=== PATIENT | male | born 1945 | race Caucasian/White ===

== ENCOUNTER 2016-09-02 21:00 | Inpatient (IN) | payer BC ==
[2016-08-31 21:34] LABS: A/G RATIO 1.2 (0.7-1.9); ALKALINE PHOSPHATASE 66 U/L (45-117); CALCIUM, SERUM 8.8 MG/DL (8.5-10.4); CHLORIDE, SERUM 100 MMOL/L (96-112); CO2 (CARBON DIOXIDE) 28 MMOL/L (24-34); GFR AFRICAN AMERICAN 12 ML/MIN (>=60); GFR NON AFRICAN AMERICAN 10 ML/MIN (>=60); GLOBULIN 3.3 G/DL (2.5-4.1); GLUCOSE, SERUM 101 MG/DL (60-99); POTASSIUM, SERUM 4.4 MMOL/L (3.5-5.3); SGOT(AST) 26 U/L (5-40); SGPT(ALT) 29 U/L (5-65); SODIUM, SERUM 139 MMOL/L (135-148); TOTAL BILIRUBIN 0.7 MG/DL (0-1.2); TOTAL PROTEIN 7.3 G/DL (6.0-8.5)
[2016-08-31 21:39] LABS: BUN (BLOOD UREA NITROGEN) 98 MG/DL (6-23); CREATININE 5.29 MG/DL (0.70-1.30)
--- NOTE | ~2016-09-02 | CN ---
Consultation Report [facility] [address] [place]. [address] NAME: FRANCOIS MOORE : 43 STATUS : ADM Senthil PAT#: [id number] AGE: 71 ADM/REG DATE : 09/02/16 MR#: [id number] REPORT SERV DATE: 09/04/16 DICTATED BY: ENE COLLINS DATE: 09/03/16 REPORT STATUS : Draft TRANSCRIBED BY: MODL DATE: 09/03/16 DATE OF CONSULTATION: REASON FOR CONSULTATION: Acute kidney injury. HISTORY OF PRESENT ILLNESS: This is a very pleasant 71-year-old male patient, referred to [facility] Emergency Department at the request of his primary care physician, Dr. Mccarthy. Baseline creatinine appears to be around 1.1 to 1.3. Mr. Moore has recently experienced an inpatient hospitalization with atrial fibrillation with pacemaker and a subsequent GI bleed after being initiated on Eliquis. He reports that he began to feel "zombie-like" over the last week or so and reported to Dr. Mccarthy's office and was noted to have a low blood pressure. The patient states that he was subsequently removed from his blood pressure medication and referred to the emergency department for evaluation as his creatinine was elevated. Creatinine on an initial evaluation here was 5.29 on 08/31, now at 3.23 on 09/03, trending now to 2.85. The patient reports no incidence of nausea, vomiting, or diarrhea. He does not chronically use nonsteroidal medications and has not been exposed to contrast medium of late. He does chronically have difficulty with his prostate and is followed by Dr. Galindo and reports that he has received a previous TURP, but has not had a diagnosis of prostate cancer and declines any overt difficulty with urination. PAST MEDICAL HISTORY: Includes systolic congestive heart failure with a known ejection fraction last measured at 25%, recent hospitalization with pacer and subsequent GI bleed with initiation of Eliquis, atrial fibrillation, headaches, previous instances of acute renal insufficiency, chronic right bundle-branch block, history of GI bleed as above, nonischemic cardiomyopathy, recurrent ventricular tachycardia, depression, hyperlipidemia, and hypothyroidism. SOCIAL HISTORY: Previous [id number] history of smoking. This is a remote occurrence and has not smoked for greater than 20 years by report. No EtOH. No illicit drugs. 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 FAMILY HISTORY: Noncontributory and not reviewed during this consultation and dictation. ALLERGIES: HE LISTS NO KNOWN ALLERGIES. ACTIVE MEDICATIONS: Include Xanax 0.25 mg b.i.d. p.r.n., Cordarone 200 mg p.o. b.i.d., Lipitor 20 mg p.o. at bedtime, carvedilol 6.25 mg p.o. b.i.d., Flonase one spray nasal daily, Prinivil 5 mg p.o. daily, Zofran 4 mg p.o. t.i.d. p.r.n., Protonix 40 mg p.o. b.i.d., Paxil 10 mg p.o. at bedtime, Aldactone 25 mg p.o. daily, and Flomax 0.4 mg p.o. daily. PHYSICAL EXAMINATION: VITAL SIGNS: Blood pressure 119/68, temperature 97.9, respiratory rate of 18, heart rate of 80 beats per minute. GENERAL: He is an awake, alert, and oriented male patient, lying in bed during evaluation with no complaints. Consultation Report [address] [address] NAME: FRANCOIS MOORE : 43 STATUS : ADM Senthil PAT#: [id number] AGE: 71 ADM/REG DATE : 09/02/16 MR#: [id number] REPORT SERV DATE: 09/04/16 DICTATED BY: ENE COLLINS DATE: 09/03/16 REPORT STATUS : Draft TRANSCRIBED BY: KARL DATE: 09/03/16 HEENT: Normocephalic, atraumatic. Normal ocular movements. No scleral icterus or conjunctival pallor is appreciated. NECK: Supple without thyromegaly. No JVD or mass. CHEST: Shows positive S1 and S2. No rubs or gallops. LUNGS: Diminished throughout. Normal expansion and effort. No noticeable rhonchi or wheezes. GI: Shows positive bowel sounds in all four quadrants. No appreciable mass or tenderness. : Deferred. EXTREMITIES: Show positive pulses. No clubbing, cyanosis, or edema. NEUROLOGIC: Appears to be grossly intact. Nonfocal. Appropriate mood and affect. SKIN: Warm, dry, and intact to the visualized surfaces. No rash, lesions, or ecchymosis. LABORATORY DATA AND IMAGING: Pertinent laboratories and imaging to this evaluation are as follows: Renal ultrasound taken this morning shows nonobstructive kidneys with an enlarged prostate with a noted bladder does not identify any indication of retention. Most recent electrolyte profile: Sodium 141, potassium 4.2, chloride 100, CO2 of 31, BUN 64, creatinine 2.85. Reflected GFR at 21 mL/minute. Calcium 9.3, magnesium 2.1, phosphorus 3.0. TSH 2.53. CBC shows white blood cell count of 8.2, RBC 4.28, hemoglobin is 11.7, hematocrit 36.4, and platelets of 231. Urinalysis: Negative for protein, glucose, or ketones. Minimal white blood cells or RBCs. IMPRESSION AND PLAN: This is a pleasant 71-year-old male patient with medical history as listed above. Recent gastrointestinal bleed, with Eliquis, with known cardiac history as above with ejection fraction at 25% and placement of a pacemaker, now presenting to [facility] at the request of his primary care physician, with an acute kidney injury with concomitant use of TASHA inhibitor as well as Aldactone. Creatinine measured on 08/31, 5.29. Creatinine trending over the last 24 hours 3.23, and 2.85. Baseline creatinine appears to be around 1.1 to 1.3. Likely, this injury is related to possible volume contraction plus or minus acute tubular necrosis with noted hypotension and reported incidences of the patient stating he felt "zombie-like" with blood pressure readings low by his recall in Dr. Mccarthy's office. May also consider recent GI bleed with a down trend and his hemoglobin may be worth guaiacing his stools for further evaluation. This patient reports no dark tarry stools, and he had a recent scope and procedure by his recall related to his gastrointestinal bleed that was diagnosed. Hold his TASHA; hold his Aldactone as above; check his postvoid residual with known difficulty with enlarged prostate followed by Dr. Galindo; previous TURP by the patient recall. Renal ultrasound is negative. Place him on strict I's and O's and assure his urinary output. Hopeful of renal recovery to previous baseline as he is already indicated a quick return towards that baseline this morning. There is no acute clinical indication for dialysis, and we will watch this patient closely. Modify treatment plan based on the clinical presentation of the patient, laboratory results, further consultation with renal attending. We appreciate your consultation and glad to follow with you. Consultation Report [place] [address] [place] [address] NAME: FRANCOIS MOORE : 43 STATUS : ADM Senthil PAT#: [id number] AGE: 71 ADM/REG DATE : 09/02/16 MR#: [id number] REPORT SERV DATE: 09/04/16 DICTATED BY: ENE COLLINS DATE: 09/03/16 REPORT STATUS : Draft TRANSCRIBED BY: MODL DATE: 09/03/16 DICTATED BY: Maciel Lopes NP JR/KARL Ene Collins M.D. / [id number] CC: MD Donald Nielson M.D.
--- NOTE | ~2016-09-02 | HP ---
History And Physical [place] [place] [id number] [place]. [address] NAME: FRANCOIS MOORE : 43 STATUS : ADM Senthil PAT#: [id number] AGE: 71 ADM/REG DATE : 09/02/16 MR#: [id number] REPORT SERV DATE: 09/03/16 DICTATED BY: RAKESH CARLISLE DATE: 09/03/16 REPORT STATUS : Draft TRANSCRIBED BY: MODL DATE: 09/03/16 DATE OF ADMISSION: 09/02/2016 CHIEF COMPLAINT: Acute renal failure. HISTORY OF PRESENT ILLNESS: This is a 71-year-old male, referred here by his primary care physician, Dr. Mccarthy, for acute renal failure. History is obtained from the patient, and reviewing data available on the Dialective system. According to available data, Mr. moore was in his usual state of health, has a history of systolic congestive heart failure with an ejection fraction of 25%, atrial fibrillation with a pacemaker and a recent GI bleed while he was started on Eliquis. Since the GI bleed his medications especially his hypertension medications were being adjusted and he was being diuresed as well. His BUN and creatinine on 07/17/2016 was 27 and 1.42. On 08/31/2016 it jumped up to 5.29 with a BUN of 98. Today it was a BUN of 67 and creatinine was 3.23. Dr. Mccarthy had seen the 08/31/2016 results and asked the patient to go into the emergency room to be evaluated. During this time, the patient was quite asymptomatic, although he complains of dysuria. He also complained of increased frequency of urination as well. He denied any other symptoms associated with this. In the emergency room, initial workup revealed renal function as described above. Hospitalist Service is asked to admit him for further evaluation and treatment. At the time of my evaluation, he denied any chest pain or palpitations. He had no orthopnea. He had no cough, hemoptysis, night sweats, or weight loss. He denied any recent falls or loss of consciousness. No history of fevers, chills. He did have dysuria. No history of hematuria. No nausea, vomiting, diarrhea, hematemesis, or hematochezia. No other history of recent travel or exposures other than those mentioned above. PAST MEDICAL HISTORY: Significant for history of essential hypertension, systolic congestive heart failure with an ejection fraction of 25%, atrial fibrillation with pacemaker placement. He has chronic right bundle-branch block. History of GI bleed. Nonischemic cardiomyopathy, recurrent ventricular tachycardia, depression, hyperlipidemia, and hypothyroidism. SOCIAL HISTORY: He has a 20-pack year history of smoking and has not smoked in a long time. He denies alcohol use or recreational drug use. He is a construction management assistant. FAMILY HISTORY: Noncontributory. MEDICATIONS: His medications at home were reviewed by me in the chart today and reordered by me. REVIEW OF SYSTEMS: History And Physical [address] [address] NAME: FRANCOIS MOORE : 43 STATUS : ADM Senthil PAT#: [id number] AGE: 71 ADM/REG DATE : 09/02/16 MR#: [id number] REPORT SERV DATE: 09/03/16 DICTATED BY: RAKESH CARLISLE DATE: 09/03/16 REPORT STATUS : Draft TRANSCRIBED BY: KARL DATE: 09/03/16 As in history of present illness. All other systems were reviewed in detail and are quite unremarkable. PHYSICAL EXAMINATION: GENERAL: This is a pleasant 71-year-old, not in any acute distress. HEENT: His head is atraumatic and normocephalic. He is alert, awake, and oriented to time, place, and person. Pupils are equal, reacting to light and accommodating. External ocular muscles are intact. Membranes are moist and pink. Sclerae are nonicteric. NECK: Supple with no jugular venous distention, lymphadenopathy, or thyromegaly. LUNGS: Clear to auscultation with no wheezes, rubs, or crackles. HEART: Heart sounds were regular with no murmurs, rubs, or gallops. ABDOMEN: Soft and nontender. Bowel sounds are present. EXTREMITIES: No cyanosis, clubbing, or edema. NEUROLOGIC: Grossly intact. No focal sensory or motor deficits. Higher functions appeared intact. Gait was not examined. VITAL SIGNS: Today showed a temperature of 96.6, pulse 98, respirations 18 a minute, blood pressure was 127/81, and oxygen saturations were 98%, breathing 2 L of oxygen via nasal cannula. LABORATORY DATA: Reviewed on the Dialective system showed a sodium of 141, potassium of 4.4, chloride of 102, CO2 of 28, BUN was 67 with a creatinine of 3.23, and GFR was 21. His blood glucose was 124. His alkaline phosphatase, ALT, AST were within normal limits. CBC showed a white blood cell count of 11,000, hemoglobin was 12.7, hematocrit 38.9, and platelet count was 266,000. Urinalysis was grossly unremarkable today. No imaging was performed in the ER today. IMPRESSION: 1. Acute renal failure. 2. Essential hypertension. 3. Systolic congestive heart failure with an ejection fraction of 25%. 4. Atrial fibrillation with pacemaker placement. 5. Right bundle-branch block. 6. Recent gastrointestinal bleeding. 7. Chronic ischemic cardiomyopathy. 8. Hypothyroidism. 9. Depression. 10.Recurrent ventricular tachycardia. 11.Hyperlipidemia. PLAN: We will admit Mr. Moore to the Hospitalist Service in cardiac telemetry for a 24-hour observation period. We will go ahead and get Nephrology Service to evaluate him in the morning in consultation and offer recommendations. The patient was in congestive heart failure and was treated with diuretics. He was also on Eliquis and had a GI bleed as well. History And Physical [address] [address] NAME: FRANCOIS MOORE : 43 STATUS : ADM Senthil PAT#: [id number] AGE: 71 ADM/REG DATE : 09/02/16 MR#: [id number] REPORT SERV DATE: 09/03/16 DICTATED BY: RAKESH CARLISLE DATE: 09/03/16 REPORT STATUS : Draft TRANSCRIBED BY: KARL DATE: 09/03/16 Anyway, we will go ahead and hold any diuretics, NSAIDs, and other nephrotoxins medications. Start him on IV fluids very cautiously for volume replacement due to his congestive heart failure. His anticoagulation is on hold since his GI bleed. We will monitor chemistry, electrolytes in the morning and replete as needed, and also check his TSH. He will be on SCDs for DVT prophylaxis while he is here. I have discussed the above plans with the patient. His questions were answered and he is agreeable to the above recommendations. Hospitalist Service will be following him during his stay here. /KARL Rakesh Carlisle M.D. / [id number] CC: MD Donald Nielson M.D.
--- NOTE | ~2016-09-02 | DS ---
Discharge Summary [facility] [address] [place]. [address] NAME: FRANCOIS MOORE : 43 STATUS : DIS IN PAT#: [id number] AGE: 71 ADM/REG DATE : 09/02/16 MR#: [id number] REPORT SERV DATE: 09/06/16 DICTATED BY: JR. WHITESIDE WILLIAM JOHN DATE: 09/05/16 REPORT STATUS : Draft TRANSCRIBED BY: MODKenneth DATE: 09/05/16 ADMISSION DATE: 09/02/2016 DISCHARGE DATE: 09/05/2016 DISCHARGE DIAGNOSES: Include: 1. Acute kidney injury with recent gastrointestinal bleed and chronic systolic heart failure. 2. Overdiuresis and acute tubular necrosis. 3. Essential hypertension. 4. Chronic ischemic cardiomyopathy with chronic systolic heart failure, ejection fraction 25%. 5. Recent gastrointestinal bleed. 6. Atrial fibrillation, permanent pacemaker. 7. Right bundle-branch block, which is chronic. 8. Hypothyroidism. 9. Depression. 10.History of recurrent ventricular tachycardia. OPERATIONS, PROCEDURES, AND TREATMENTS INCLUDE: Renal ultrasound done 09/03/2016, which showed nonobstructive kidneys with an enlarged prostate. No other remarkable findings. DISCHARGE MEDICATIONS: Include: 1. Xanax 0.25 mg orally at bedtime. 2. Lipitor 20 mg orally daily. 3. Amiodarone 200 mg orally twice a day. 4. Mexiletine 150 mg orally three times a day. 5. Coreg 3.125 mg orally twice a day. 6. Proscar 5 mg orally daily. 7. Protonix 40 mg orally twice a day. 8. Paxil 10 mg orally daily. 9. Flomax 0.4 mg daily. 10.Lasix 40 mg orally daily. HOSPITAL COURSE: The patient is a 71-year-old white male, referred from Dr. Mccarthy's office for renal failure on 09/02/2016. The patient had a recent history of GI bleeding in June 2016. During that stay, he had acute kidney injury after being started on Eliquis and developing GI bleed. He was seen in Dr. Mccarthy's office, had laboratory drawn on 08/31/2016, his BUN was 98, creatinine was 5.3. His diuretics were withheld. The patient had a redraw, which was again elevated and was inpatient, was forwarded to the emergency room for further care. Initial exam was remarkable for temperature 96.6, heart rate 98, respiratory rate 18, blood pressure 127/81, saturation was 98% on 2 L nasal cannula. Significant laboratory included a sodium 141, potassium 4.4, chloride 102, bicarb 28, BUN 67, creatinine 3.2, hemoglobin was 12.7. Discharge Summary [place] [facility] [address] [place]. [address] NAME: FRANCOIS MOORE : 43 STATUS : DIS IN PAT#: [id number] AGE: 71 ADM/REG DATE : 09/02/16 MR#: [id number] REPORT SERV DATE: 09/06/16 DICTATED BY: JR. WHITESIDE WILLIAM JOHN DATE: 09/05/16 REPORT STATUS : Draft TRANSCRIBED BY: KARL DATE: 09/05/16 The patient was admitted to observation in the clinical decision unit for further care. His diuretics were withheld, and he was gently IV fluid hydrated. His renal function gradually improved. He was seen by Dr. Escalante of Nephrology, who stopped his Aldactone and Prinivil. Since that time, the patient's renal function has continued to improve. On discharge, his BUN was 37 and creatinine is 1.8. We will resume his Lasix 40 mg orally daily, however, hold his Prinivil as well as Aldactone until seen by Dr. Mccarthy. The patient will follow up with Dr. Mccarthy in one week with a BMP. Consideration at that time should be given to resuming TASHA inhibitor and Aldactone. The remainder of the patient's health problems were stable throughout the hospitalization and were not addressed. DISCHARGE DIET: Will be as prior. ACTIVITY: As tolerated. FOLLOWUP: With Dr. Mccarthy in one week with a BMP. For discharge exam and laboratory, please see daily progress note. This discharge took 32 minutes for patient encounter, coordination of care, and documentation. WChrisF/KARL Pipe Whiteside Jr, MD / [id number] CC: Pipe Whiteside Jr, MD Michael Dant, M.D.
[~2016-09-02 21:00] MED LIST: ASAB PO; CORDARONE PO; COREG12 PO; ELIQUIS 5 MG TAB5 MG PO; FLOMAX4 PO; FLONASE NAS; L40 PO; LIPITOR20 PO; MONODOX100 MG PO; NEO-OINT15 TOP; PAX10 PO; PRIN5 PO; PROTONIX PO; SPIRO25 PO; X25 PO; ZOFRAN4 PO
[2016-09-03 01:44] LABS: BASOPHILS 0.1 %; BASOPHILS ABSOLUTE 0.01 10/3/uL (0.0-0.16); EOSINOPHILS 0.5 %; EOSINOPHILS ABSOLUTE 0.06 10/3/uL (0.0-0.53); IMMATURE GRANULOCYTES 0.2 %; IMMATURE GRANULOCYTES ABSOLUTE 0.02 10/3/uL (0.0-0.11); LYMPHOCYTES 13.5 %; LYMPHOCYTES ABSOLUTE 1.48 10/3/uL (0.67-4.30); MEAN CORPUSCULAR HEMOGLOB 27.9 pg (26.0-34.0); MEAN CORPUSCULAR VOLUME 85.5 fL (80-100); MEAN PLATELET VOLUME 10.2 fL (9.2-13.0); MONOCYTES ABSOLUTE 0.77 10/3/uL (0.21-1.20); NEUTROPHILS 78.7 %; NEUTROPHILS ABSOLUTE 8.62 10/3/uL (2.02-8.40); RBC DISTRIBUTION WIDTH 17.4 % (12.0-16.0)
[2016-09-03 01:59] LABS: ER CBC TAT 0 Hrs 19 Mins; HEMATOCRIT 38.9 % (40.0-51.0); HEMOGLOBIN 12.7 g/dL (13.6-17.8); MEAN CORPUS HGB CONC 32.6 g/dL (32.0-36.0); PLATELET COUNT 266 10/3/uL (150-400); RED CELL COUNT 4.55 10/6/uL (4.7-6.1)
[2016-09-03 02:00] LABS: MANUAL DIFF NO %
[2016-09-03 02:03] LABS: ASCORBIC ACID (UR NOT ORDER) 20 (NEG); BILIRUBIN, URINE NEGATIVE (NEG); ER URINALYSIS TAT 0 Hrs 05 Mins; KETONE, URINE NEGATIVE (NEG); LEUKOCYTE ESTERASE(NOT OR NEG (NEG); NITRITE (URINE) NEG (NEG); WBC (NOT ORDERED) (RFLEX) < 1 (0-5)
[2016-09-03 02:06] LABS: A/G RATIO 0.9 (0.7-1.9); ALBUMIN 4.1 G/DL (3.5-5.0); ALKALINE PHOSPHATASE 72 U/L (45-117); CALCIUM, SERUM 9.6 MG/DL (8.5-10.4); CHLORIDE, SERUM 102 MMOL/L (96-112); CO2 (CARBON DIOXIDE) 28 MMOL/L (24-34); POTASSIUM, SERUM 4.4 MMOL/L (3.5-5.3); SGOT(AST) 25 U/L (5-40); SGPT(ALT) 29 U/L (5-65); SODIUM, SERUM 141 MMOL/L (135-148); TOTAL BILIRUBIN 0.7 MG/DL (0-1.2); TOTAL PROTEIN 8.5 G/DL (6.0-8.5)
[2016-09-03 02:07] LABS: BUN (BLOOD UREA NITROGEN) 67 MG/DL (6-23); CREATININE 3.23 MG/DL (0.70-1.30); GFR AFRICAN AMERICAN 21 ML/MIN (>=60); GFR NON AFRICAN AMERICAN 18 ML/MIN (>=60); GLOBULIN 4.4 G/DL (2.5-4.1); GLUCOSE, SERUM 124 MG/DL (60-99)
[2016-09-03 07:09] LABS: BASOPHILS 0.1 %; BASOPHILS ABSOLUTE 0.01 10/3/uL (0.0-0.16); EOSINOPHILS 0.9 %; EOSINOPHILS ABSOLUTE 0.07 10/3/uL (0.0-0.53); HEMATOCRIT 36.4 % (40.0-51.0); HEMOGLOBIN 11.7 g/dL (13.6-17.8); IMMATURE GRANULOCYTES 0.1 %; IMMATURE GRANULOCYTES ABSOLUTE 0.01 10/3/uL (0.0-0.11); LYMPHOCYTES 11.5 %; LYMPHOCYTES ABSOLUTE 0.95 10/3/uL (0.67-4.30); MEAN CORPUS HGB CONC 32.1 g/dL (32.0-36.0); MEAN CORPUSCULAR HEMOGLOB 27.3 pg (26.0-34.0); MEAN PLATELET VOLUME 9.9 fL (9.2-13.0); MONOCYTES 7.9 %; MONOCYTES ABSOLUTE 0.65 10/3/uL (0.21-1.20); NEUTROPHILS 79.5 %; NEUTROPHILS ABSOLUTE 6.54 10/3/uL (2.02-8.40); PLATELET COUNT 231 10/3/uL (150-400); RBC DISTRIBUTION WIDTH 17.7 % (12.0-16.0); RED CELL COUNT 4.28 10/6/uL (4.7-6.1); WHITE BLOOD CELLS 8.2 10/3/uL (4.5-10.5)
[2016-09-03 07:13] LABS: MANUAL DIFF NO %
[2016-09-03 07:36] LABS: BUN (BLOOD UREA NITROGEN) 64 MG/DL (6-23); CALCIUM, SERUM 9.3 MG/DL (8.5-10.4); CHLORIDE, SERUM 100 MMOL/L (96-112); CO2 (CARBON DIOXIDE) 31 MMOL/L (24-34); CREATININE 2.85 MG/DL (0.70-1.30); GFR AFRICAN AMERICAN 24 ML/MIN (>=60); GFR NON AFRICAN AMERICAN 21 ML/MIN (>=60); POTASSIUM, SERUM 4.2 MMOL/L (3.5-5.3); SODIUM, SERUM 141 MMOL/L (135-148)
[2016-09-03 07:37] LABS: GLUCOSE, SERUM 97 MG/DL (60-99)
[2016-09-03] MEDS ORDERED: PROSCAR5 PO (15:02)
[2016-09-03] MEDS ORDERED: COREG6 PO (15:02)
[2016-09-03] MEDS ORDERED: L40 PO (15:03)
[2016-09-03] MEDS ORDERED: CORDARONE PO (15:03)
[2016-09-03] MEDS ORDERED: SPIRO25 PO (15:03)
[2016-09-03] MEDS ORDERED: PAX10 PO (15:03)
[2016-09-03] MEDS ORDERED: LIPITOR20 PO (15:03)
[2016-09-03] MEDS ORDERED: FLOMAX4 PO (15:04)
[2016-09-03] MEDS ORDERED: X25 PO (15:04)
[2016-09-03] MEDS ORDERED: PROTONIX PO (15:04)
[2016-09-03] MEDS ORDERED: ZOFRAN4 PO (15:04)
[2016-09-03] MEDS ORDERED: MEXITIL 150 MG150 MG PO (15:05)
[2016-09-04 06:26] LABS: BASOPHILS 0.1 %; BASOPHILS ABSOLUTE 0.01 10/3/uL (0.0-0.16); EOSINOPHILS 1.3 %; EOSINOPHILS ABSOLUTE 0.11 10/3/uL (0.0-0.53); HEMATOCRIT 36.4 % (40.0-51.0); HEMOGLOBIN 11.8 g/dL (13.6-17.8); IMMATURE GRANULOCYTES 0.4 %; IMMATURE GRANULOCYTES ABSOLUTE 0.03 10/3/uL (0.0-0.11); LYMPHOCYTES 11.3 %; LYMPHOCYTES ABSOLUTE 0.96 10/3/uL (0.67-4.30); MANUAL DIFF NO %; MEAN CORPUS HGB CONC 32.4 g/dL (32.0-36.0); MEAN CORPUSCULAR HEMOGLOB 27.6 pg (26.0-34.0); MEAN CORPUSCULAR VOLUME 85.2 fL (80-100); MEAN PLATELET VOLUME 9.9 fL (9.2-13.0); MONOCYTES 10.1 %; MONOCYTES ABSOLUTE 0.86 10/3/uL (0.21-1.20); NEUTROPHILS 76.8 %; NEUTROPHILS ABSOLUTE 6.54 10/3/uL (2.02-8.40); PLATELET COUNT 224 10/3/uL (150-400); RBC DISTRIBUTION WIDTH 17.4 % (12.0-16.0); RED CELL COUNT 4.27 10/6/uL (4.7-6.1); WHITE BLOOD CELLS 8.5 10/3/uL (4.5-10.5)
[2016-09-04 06:35] LABS: ALBUMIN 3.4 G/DL (3.5-5.0); CALCIUM, SERUM 8.9 MG/DL (8.5-10.4); CHLORIDE, SERUM 103 MMOL/L (96-112); CO2 (CARBON DIOXIDE) 29 MMOL/L (24-34); GFR AFRICAN AMERICAN 34 ML/MIN (>=60); GFR NON AFRICAN AMERICAN 29 ML/MIN (>=60); GLUCOSE, SERUM 94 MG/DL (60-99); PHOSPHORUS, SERUM 2.8 MG/DL (2.5-4.5); POTASSIUM, SERUM 4.1 MMOL/L (3.5-5.3); SODIUM, SERUM 140 MMOL/L (135-148)
[2016-09-04 06:37] LABS: BUN (BLOOD UREA NITROGEN) 49 MG/DL (6-23); CREATININE 2.17 MG/DL (0.70-1.30)
[2016-09-05 06:32] LABS: ALBUMIN 3.1 G/DL (3.5-5.0); BUN (BLOOD UREA NITROGEN) 37 MG/DL (6-23); CALCIUM, SERUM 8.7 MG/DL (8.5-10.4); CHLORIDE, SERUM 102 MMOL/L (96-112); CO2 (CARBON DIOXIDE) 29 MMOL/L (24-34); CREATININE 1.81 MG/DL (0.70-1.30); GFR AFRICAN AMERICAN 42 ML/MIN (>=60); GFR NON AFRICAN AMERICAN 37 ML/MIN (>=60); GLUCOSE, SERUM 97 MG/DL (60-99); PHOSPHORUS, SERUM 2.3 MG/DL (2.5-4.5); POTASSIUM, SERUM 3.8 MMOL/L (3.5-5.3); SODIUM, SERUM 139 MMOL/L (135-148)
[2016-09-05] MEDS ORDERED: COREG3 PO (10:15)
== END 2016-09-05 11:41 | disposition home or self-care (01) | DRG 683 ==
LOC: ER 21:00 → 2SO 23:59
PROVIDERS: Family Medicine; Hospitalist; Internal Medicine; Registered Nurse; Specialist
DX: N17.0 Acute kidney failure with tubular necrosis (principal); I50.22 Chronic systolic (congestive) heart failure; I47.2 Ventricular tachycardia; E87.2 Acidosis; I12.0 Hypertensive chronic kidney disease with stage 5 chronic kidney disease or end stage renal disease; I48.91 Unspecified atrial fibrillation; N18.6 End stage renal disease; I45.10 Unspecified right bundle-branch block; F32.9 Major depressive disorder, single episode, unspecified; E78.5 Hyperlipidemia, unspecified; E03.9 Hypothyroidism, unspecified; I25.5 Ischemic cardiomyopathy; E87.5 Hyperkalemia; E55.9 Vitamin D deficiency, unspecified; R31.29 Other microscopic hematuria; E21.3 Hyperparathyroidism, unspecified; N28.1 Cyst of kidney, acquired; Z95.0 Presence of cardiac pacemaker; Z99.2 Dependence on renal dialysis; Z87.891 Personal history of nicotine dependence
CPT/HCPCS: 76775; 80048; 80053; 80069; 81001; 82570; 83735; 84100; 84300; 84443; 84540; 85025; 93005; 99284; A9270-GY